=== PATIENT | male | born 1955 | race Caucasian/White ===

== ENCOUNTER 2024-06-18 22:18 | Inpatient (IN) ==
[2024-06-18 23:41] LABS: ABS Lymphocytes 0.8 10^3/uL (1.0-4.8); ABS Monocytes 0.3 10^3/uL (0.0-1.1); ABS Neutrophils 7.4 10^3/uL (1.5-7.6); ABS Nucleated RBC 0.01 10^3/ul; Eosinophil % 0.1 %; Hematocrit 37.8 % (38-53); Hemoglobin 12.7 g/dL (13.2-16.3); Lymphocyte % 9.7 %; Mean Corpuscular Hemoglobin 30.8 pg (27-33); Mean Corpuscular Hgb Conc 33.7 g/dL (31-36); Mean Corpuscular Volume 91.4 fL (80-97); Mean Platelet Volume 7.7 fL (7.5-11.2); Nucleated Red Blood Cells % 0.1 %/100WBC (0.0-0.8); Platelet Count 237 10^3/uL (150-450); Red Blood Count 4.13 10^6/uL (4.06-5.63); Red Cell Distribution Width 13.5 % (12-17); White Blood Count 8.6 10^3/uL (3.6-10.2)
[2024-06-19] MEDS: Lactated Ringers 1000 ml BAG 1,000 ML IV ONE (00:08)
[2024-06-19 00:11] LABS: Albumin 3.9 g/dL (3.2-5.2); Albumin/Globulin Ratio 1.4 (1-3); Calcium 8.3 mg/dL (8.6-10.3); Creatinine, Serum 0.39 mg/dL (0.67-1.17); Globulin 2.7 g/dL (2-4); Magnesium 1.6 mg/dL (1.9-2.7); Potassium 4.6 mmol/L (3.5-5.0); Total Bilirubin 0.8 mg/dL (0.2-1.0); Total Protein 6.6 g/dL (6.4-8.9); eGFR CKD-EPI 118.3 (>60)
[2024-06-19] MEDS: Magnesium Sulfate 2 gm BAG 2 GM/50 ML BAG IVPB ONE ×2 (00:49→15:05)
[2024-06-19 01:23] LABS: High Sensitivity Troponin 1 Hr 5 pg/mL (<20)
[2024-06-19] MEDS: Morphine 4 MG/ML VIAL (1 ml) IV ONE (02:31)
[2024-06-19] MEDS: Iohexol 350 (CONTRAST) 500 ML MDV IV ONE (04:16)
[2024-06-19] MEDS ORDERED: Polyethylene Glycol 3350 17 GM PACKET PO PRN (05:57)
[2024-06-19] MEDS ORDERED: Senna TAB 8.6 mg TAB PO PRN (05:57)
[2024-06-19] MEDS: NS 0.9% 1000 ml BAG 1,000 ML IV SCH (06:20)
[2024-06-19 06:46] LABS: Urine Appearance Clear; Urine Bilirubin Negative (Negative); Urine Blood 1+ (Negative); Urine Color Light-Yellow; Urine Glucose Negative (Negative); Urine Ketones 1+ (Negative); Urine Nitrite Negative (Negative); Urine Protein Negative (Negative); Urine Specific Gravity 1.027 (1.002-1.030); Urine Urobilinogen Negative (Negative); Urine pH 5.5 (5.0-8.0)
[2024-06-19 06:48] LABS: Urine Bacteria Absent /HPF (Absent); Urine Red Blood Cell 3+(>10/hpf) /HPF (0-Trace); Urine White Blood Cell Trace(0-5/hpf) /HPF (0-Trace)
[2024-06-19] MEDS: Morphine 2 MG/ML SYRINGE IV PRN (08:48)
[2024-06-19] MEDS: Sulfur Hexaflouride MICROSPHR 25 MG VIAL IV PRN (11:48)
[2024-06-19] MEDS: Acetaminophen IV 1 GM/100ML 1,000 MG/100 ML BAG IV SCH (12:41)
[2024-06-19] MEDS: Enoxaparin 40 MG/0.4 ML SYR SUBCUT ONE (13:55)
[2024-06-19] MEDS: Labetalol IV 5 MG/ML 20 ml VIAL IV PUSH ONE (13:56)
[2024-06-19 13:57] LABS: Calcium 8.5 mg/dL (8.6-10.3); Creatinine, Serum 0.42 mg/dL (0.67-1.17); Magnesium 1.8 mg/dL (1.9-2.7); Potassium 4.2 mmol/L (3.5-5.0); eGFR CKD-EPI 115.7 (>60)
[2024-06-19] MEDS ORDERED: Enoxaparin 40 MG/0.4 ML SYR SUBCUT SCH (14:00)
[2024-06-19 16:16] LABS: Urine Potassium Concentration 58.2 mmol/L
[2024-06-19 16:59] LABS: Urine Osmo 598 mOsm/kg (150-1150)
[2024-06-20 07:31] LABS: ABS Lymphocytes 0.7 10^3/uL (1.0-4.8); ABS Monocytes 0.7 10^3/uL (0.0-1.1); Hematocrit 36.6 % (38-53); Hemoglobin 12.6 g/dL (13.2-16.3); Lymphocyte % 8.8 %; Mean Corpuscular Hemoglobin 31.3 pg (27-33); Mean Corpuscular Hgb Conc 34.5 g/dL (31-36); Mean Corpuscular Volume 90.8 fL (80-97); Mean Platelet Volume 7.8 fL (7.5-11.2); Platelet Count 209 10^3/uL (150-450); Red Blood Count 4.03 10^6/uL (4.06-5.63); Red Cell Distribution Width 13.1 % (12-17); White Blood Count 8.5 10^3/uL (3.6-10.2)
[2024-06-20 07:48] LABS: Calcium 8.2 mg/dL (8.6-10.3); Creatinine, Serum 0.37 mg/dL (0.67-1.17); Potassium 4.1 mmol/L (3.5-5.0); eGFR CKD-EPI 120.2 (>60)
[2024-06-20 08:18] LABS: Magnesium 1.8 mg/dL (1.9-2.7)
[2024-06-20] MEDS: Magnesium Sulfate 2 gm BAG 2 GM/50 ML BAG IVPB ONE (09:57)
[2024-06-20] MEDS ORDERED: Influenza Vaccine *TRI* 2024-25* 0.5 ML SYRINGE IM ONE (10:00)
[2024-06-20] MEDS: COVID VAC 24-25 (12+) (Moderna) Syringe 0.5 mL IM ONE (10:12)
[2024-06-20] MEDS ORDERED: fentaNYL 100 mcg/2 ml 50 MCG/ML VIAL ONE (11:33)
[2024-06-20] MEDS ORDERED: Midazolam 2 mg/2 ml VIAL 1 mg/ml 2 ml VIAL (2 mg) ONE (11:33)
[2024-06-20] MEDS ORDERED: Rocuronium 50 mg VIAL 10 mg/ml 5 ml VIAL (50 mg) ONE (11:33)
[2024-06-20] MEDS ORDERED: Lidocaine 2% PF 5 ML VIAL ONE (11:33)
[2024-06-20] MEDS ORDERED: Propofol 10 MG/ML 20 ML BTL ONE (11:33)
[2024-06-20] MEDS ORDERED: Ondansetron 4 mg VIAL 2 MG/ML 2 ml VIAL IV PRN ×2 (11:43→16:20)
[2024-06-20] MEDS ORDERED: Naloxone 0.4 mg VIAL 0.4 mg/ml 1 ml VIAL IV PRN (11:43)
[2024-06-20] MEDS ORDERED: fentaNYL 100 mcg/2 ml 50 MCG/ML VIAL IV PRN (11:43)
[2024-06-20] MEDS: HYDROmorphone 1 MG/1 ML SYRINGE IV PRN (12:33)
[2024-06-20] MEDS ORDERED: ROPIVACAINE 5 MG/ML 30 ML BTL (0.5%) ONE (12:34)
[2024-06-20 13:06] LABS: Calcium 8.1 mg/dL (8.6-10.3); Creatinine, Serum 0.38 mg/dL (0.67-1.17); Potassium 3.9 mmol/L (3.5-5.0); eGFR CKD-EPI 119.2 (>60)
[2024-06-20] MEDS ORDERED: Tranexamic Acid 1 GM/100ML BAG 2,000 MG/200 ML BAG IV ONE (13:07)
[2024-06-20] MEDS ORDERED: ceFAZolin 2 GM PREMIX 2 GM/50 ML BAG ONE (13:11)
[2024-06-20] MEDS ORDERED: Sodium Chloride 0.9% 10 ML ONE ×2 (13:11)
[2024-06-20] MEDS: Buffered Lidocaine 1% SYRIN 1 ml INTRADERM ONE (13:48)
[2024-06-20] MEDS: Famotidine IV 10 MG/ML 2 ml VIAL (20 mg) IV ONE (13:49)
[2024-06-20] MEDS: NS 0.9% 1000 ml BAG 1,000 ML IV SCH (13:50)
[2024-06-20] MEDS ORDERED: Dexamethasone IV 4 MG/ML VIAL 1 ml VIAL ONE (14:39)
[2024-06-20] MEDS ORDERED: Ondansetron 4 mg VIAL 2 MG/ML 2 ml VIAL ONE (14:39)
[2024-06-20] MEDS ORDERED: HYDROmorphone 0.5 MG/0.5 ML SYRINGE ONE ×2 (14:44)
[2024-06-20] MEDS ORDERED: Acetaminophen IV 1 GM/100ML 1,000 MG/100 ML BAG IV ONE (16:04)
[2024-06-20] MEDS ORDERED: Calcium Carb (TUMS) 500 mg CHEW TAB PO PRN (16:20)
[2024-06-20] MEDS ORDERED: Lactulose 30 ml UDC PO PRN (16:20)
[2024-06-20] MEDS ORDERED: Magnesium Hydroxide LIQ 30 ML UDC PO PRN (16:20)
[2024-06-20] MEDS ORDERED: Ondansetron ODT 4 mg TAB 4 MG TAB PO PRN (16:20)
[2024-06-20] MEDS: Lactated Ringers 1000 ml BAG 1,000 ML IV SCH ×2 (18:36→19:37)
[2024-06-20] MEDS: Labetalol IV 5 MG/ML 20 ml VIAL IV PUSH ONE (18:37)
[2024-06-20] MEDS: ceFAZolin VIAL 2 GM in NS 0.9% 100 ml BAG 100 ML IVPB ONE (19:37)
[2024-06-20] MEDS: ceFAZolin 2 GM PREMIX 2 GM/50 ML BAG IV SCH (21:44)
[2024-06-20] MEDS: Magnesium Hydroxide LIQ 30 ML UDC PO SCH (22:32)
[2024-06-21 05:54] LABS: ABS Lymphocytes 0.7 10^3/uL (1.0-4.8); ABS Monocytes 0.7 10^3/uL (0.0-1.1); ABS Neutrophils 7.7 10^3/uL (1.5-7.6); Hematocrit 33.3 % (38-53); Hemoglobin 11.6 g/dL (13.2-16.3); Lymphocyte % 7.8 %; Mean Corpuscular Hemoglobin 31.5 pg (27-33); Mean Corpuscular Hgb Conc 34.9 g/dL (31-36); Mean Corpuscular Volume 90.2 fL (80-97); Platelet Count 191 10^3/uL (150-450); Red Blood Count 3.69 10^6/uL (4.06-5.63); Red Cell Distribution Width 12.8 % (12-17); White Blood Count 9.2 10^3/uL (3.6-10.2)
[2024-06-21 06:21] LABS: Calcium 8.3 mg/dL (8.6-10.3); Creatinine, Serum 0.4 mg/dL (0.67-1.17); eGFR CKD-EPI 117.4 (>60)
[2024-06-21] MEDS ORDERED: Pneumococcal 20-Valent Conj 0.5 ML SYR Vaccine IM ONE (10:00)
[2024-06-21] MEDS: Vitamin THERAPEUTIC TAB PO SCH (10:07)
[2024-06-21] MEDS: Influenza Vaccine *TRI* 2024-25* 0.5 ML SYRINGE IM ONE (10:12)
[2024-06-21 18:31] LABS: Osmolality Serum 261 mOsm/kg (275-295)
[2024-06-22 05:43] LABS: ABS Lymphocytes 1.1 10^3/uL (1.0-4.8); ABS Monocytes 0.8 10^3/uL (0.0-1.1); Eosinophil % 0.1 %; Hematocrit 33.7 % (38-53); Hemoglobin 11.7 g/dL (13.2-16.3); Lymphocyte % 10.8 %; Mean Corpuscular Hemoglobin 31.2 pg (27-33); Mean Corpuscular Hgb Conc 34.6 g/dL (31-36); Mean Corpuscular Volume 90.1 fL (80-97); Platelet Count 193 10^3/uL (150-450); Red Blood Count 3.74 10^6/uL (4.06-5.63); Red Cell Distribution Width 12.6 % (12-17); White Blood Count 9.9 10^3/uL (3.6-10.2)
[2024-06-22 06:01] LABS: Calcium 8.4 mg/dL (8.6-10.3); Creatinine, Serum 0.43 mg/dL (0.67-1.17); Magnesium 1.8 mg/dL (1.9-2.7); Potassium 3.8 mmol/L (3.5-5.0); eGFR CKD-EPI 114.8 (>60)
[2024-06-22] MEDS: Magnesium Hydroxide LIQ 30 ML UDC PO PRN (09:48)
[2024-06-22 10:45] VITALS: BP 150/94
[2024-06-22] MEDS: Magnesium Sulfate 2 gm BAG 2 GM/50 ML BAG IVPB ONE (10:55)
== END 2024-06-22 13:22 | disposition home or self-care (01) | DRG 301 ==
LOC: ED 22:18 → EDHOLD 22:18 → SUATTDRO 06-19 05:52 → SSU 06-19 08:38 → SUATTDRO 06-19 14:35
PROVIDERS: ADMIT Internal Medicine; ATTEND Student in an Organized Health Care Education/Training Program